=== PATIENT | male | born 1990 | race Caucasian/White ===

== ENCOUNTER 2019-01-26 12:06 | Emergency (ER) | payer OTHER ==
[~2019-01-26] VITALS: Wt 85.6 kg
[2019-01-26 12:38] VITALS: BP 125/62; PULSE 67; RESP 22
--- NOTE | 2019-01-26 15:22 | ERD ---
ER Documentation Chief Complaint Chief Complaint L thumb blister x3d; no relief w bactrim, keflex. HPI 28-year-old male, right-handed, presents to the emergency department, complaining of 3 days with a blister on the left thumb. The patient does not recall any trauma or insect bite, he has been taking Tylenol, Bactrim and Keflex. No fever, no chills, no other rashes. ROS All systems reviewed and are negative except as per history of present illness. Allergies Allergies: Coded Allergies: No Known Allergy (Unverified , 01/26/19) PMhx/Soc Medical and Surgical Hx: pt denies Medical Hx, pt denies Surgical Hx Hx Alcohol Use: No Hx Substance Use: Yes (METH, HEROIN) Hx Tobacco Use: No Smoking Status: Never smoker FmHx Family History: No diabetes, No coronary disease Physical Exam Vitals Vital Signs Date Temp Pulse Resp B/P (MAP) Pulse Ox O2 O2 Flow FiO2 Time Delivery Rate 01/26/19 97.5 67 22 125/62 100 12:38 (83) Physical Exam Const: No acute distress Head: Atraumatic Eyes: Normal Conjunctiva ENT: Normal External Ears, Nose and Mouth. Neck: Full range of motion. No meningismus. Resp: Clear to auscultation bilaterally Cardio: Regular rate and rhythm, no murmurs Abd: Soft, non tender, non distended. Normal bowel sounds Skin: No petechiae or rashes Back: No midline or flank tenderness Ext: Left thumb with 1 cm blister in the anterior aspect, without compromising the nail, no cyanosis, or edema. Distal neurovascular exam intact. Neur: Awake and alert Psych: Normal Mood and Affect Procedures/MDM Differential diagnosis include but not limited to: Insect bite, traumatic injury, herpetic chiki, dermoid cyst. Low suspicion for acute systemic infection. Physical examination and clinical presentation consistent most likely with non- terminal blister of the left thumb. During the ED course the patient remained stable, no new complaints. In I&D The procedure was explained and consent obtained. The area was cleaned with iodine. A sterile drape and prep were done. The blister area, was excised with an 18-gauge needle obtaining moderate amount of clear, serous sanguinolent fluid, the area was expressed and irrigated with normal saline. Antibiotic ointment was applied. The patient tolerated the procedure well. The patient is stable to be treated outpatient and will be discharged home. The patient was instructed to follow up with the primary care provider in the next 48h. If symptoms persist, worsen or new symptoms develop, then patient should return to the ED immediately. Instructions explained and given directly by me to the patient with acknowledgment and demonstrated understanding. Disclaimer: Inadvertent spelling and grammatical errors are likely due to EHR/dictation software use and do not reflect on the overall quality of patient care. Also, please note that the electronic time recorded on this note does not necessarily reflect the actual time of the patient encounter. Departure Diagnosis: Primary Impression: Blister (nonthermal) of left thumb, initial encounter Condition: Stable Additional Instructions: Thank you very much for allowing us to participate in your care. Your health and safety is our top priority at [facility]. The evaluation in the emergency department has been done to rule out an acute emergency, therefore, chronic conditions like malignancy or other diseases have not been evaluated; therefore, you need to follow up with a primary care provider in the next 48h. If symptoms persist, worsen or new symptoms develop, then patient should return to the ED immediately. Call your primary care doctor TOMORROW for an appointment during the next 2-4 days and bring all the information provided. Have prescriptions filled and follow precisely the directions on the label. If the symptoms get worse and your provider is unavailable, return to the Emergency Department immediately. NARESH HAWKINS MD Jan 26, 2019 15:22
== END 2019-01-26 15:58 | disposition home or self-care (01) ==
LOC: FTE 12:06
DX: S60.322A Blister (nonthermal) of left thumb, initial encounter (principal); X58.XXXA Exposure to other specified factors, initial encounter; Y92.9 Unspecified place or not applicable
CPT/HCPCS: 10060; Z7502